=== PATIENT | female | born 2000 ===

== ENCOUNTER 2019-12-14 17:49 | Emergency (ER) | payer BC, MEDICAID ==
[2019-12-14 18:14] VITALS: BP 122/75; PULSE 105
--- NOTE | 2019-12-14 18:41 | EDM.PDOC ---
ED HPI GENERAL MEDICAL PROBLEM - General Chief Complaint: Respiratory Problem Stated Complaint: pneumonia Time Seen by Provider: 12/14/19 18:20 Source of Information: Reports: Patient History Limitations: Reports: No Limitations - History of Present Illness INITIAL COMMENTS - FREE TEXT/NARRATIVE: PMH CF. Patient states she started a cold Jasmin, increased cough now with low grade fever. Negative COVID yesterday in [place]. Is prescribed azithromax MWF prophylactically, does not remember when she last took it. C/O increased fatigue and productive cough. - Related Data Allergies Allergy/AdvReac Type Severity Reaction Status Date / Time No Known Allergies Allergy Verified 11/25/15 19:23 Home Meds: Home Meds Albuterol [Proventil] 1 inh INH BID 11/25/15 [History] Azithromycin 1 tab PO MOWEFR 11/25/15 [History] Dornase Fco [Pulmozyme] 1 vial NEB DAILY 11/25/15 [History] Fluticasone Propionate [Flonase] 2 spray NASBOTH DAILY 11/25/15 [History] Lipase/Protease/Amylase [Halie Dr 24,000 Units Capsule] 4 cap PO TIDMEALS 11/25/15 [History] Mv. Min Cmb#52/FA/Vit K1/Ubi [Aquadeks Softgel] 1 tab PO DAILY 11/25/15 [History] Elexacaftor/Tezacaftor/Ivacaft [Trikafta 100/50/75 mg-150 mg] 3 tab PO TID 12/14/19 [History] Escitalopram Oxalate 10 mg PO DAILY 12/14/19 [History] Past Medical History HEENT History: Reports: Allergic Rhinitis Respiratory History: Reports: Asthma, Cystic Fibrosis, Other (See Below) Other Respiratory History: 2 embolizations, right upper lobe lobectomy Gastrointestinal History: Reports: Other (See Below) Other Gastrointestinal History: cystic fibrosis, constipation, diarrhea, digestive problems without enzymes Psychiatric History: Reports: Depression Endocrine/Metabolic History: Reports: Other (See Below) Other Endocrine/Metabolic History: CF related diabetes - Past Surgical History Female Surgical History: Reports: None Neurological Surgical History: Reports: None ED ROS GENERAL - Review of Systems Review Of Systems: See Below Constitutional: Reports: Fever, Fatigue HEENT: Reports: No Symptoms Respiratory: Reports: Shortness of Breath, Cough, Sputum Cardiovascular: Reports: No Symptoms, Dyspnea on Exertion Endocrine: Reports: Fatigue GI/Abdominal: Reports: No Symptoms : Reports: No Symptoms Musculoskeletal: Reports: No Symptoms Skin: Reports: No Symptoms Neurological: Reports: No Symptoms Psychiatric: Reports: No Symptoms Hematologic/Lymphatic: Reports: No Symptoms Immunologic: Reports: No Symptoms ED EXAM, GENERAL - Physical Exam Exam: See Below Exam Limited By: No Limitations General Appearance: Alert, No Apparent Distress Throat/Mouth: Normal Voice, No Airway Compromise Head: Atraumatic Neck: Normal Inspection, Full Range of Motion Respiratory/Chest: No Respiratory Distress, Lungs Clear. No: Rales, Wheezing Cardiovascular: Normal Peripheral Pulses, No Murmur, Tachycardia Peripheral Pulses: 3+: Radial (L), Radial (R) GI/Abdominal: Normal Bowel Sounds, Soft (Female) Exam: Deferred Rectal (Female) Exam: Deferred Back Exam: Full Range of Motion Extremities: Normal Capillary Refill Neurological: Alert, Oriented, Normal Gait Psychiatric: Normal Affect, Normal Mood Skin Exam: Warm, Dry, Intact Lymphatic: No Adenopathy Course - Vital Signs Last Recorded V/S: Last Vital Signs Temp 99.6 F 12/14/19 18:09 Pulse 105 H 12/14/19 18:09 Resp 20 12/14/19 18:09 BP 122/75 12/14/19 18:09 Pulse Ox 98 12/14/19 18:09 - Orders/Labs/Meds Orders: Active Orders 24 hr Category Date Time Status Chest 2V [CR] Stat Exams 12/14/19 Taken CULTURE SPUTUM + SMEAR [RM] Stat Lab 12/14/19 19:23 Ordered Departure - Departure Time of Disposition: 19:25 Disposition: Home, Self-Care 01 Condition: Good Clinical Impression: Pneumonia Qualifiers: Pneumonia type: due to unspecified organism Laterality: unspecified laterality Lung location: unspecified part of lung Qualified Code(s): J18.9 - Pneumonia, unspecified organism - Discharge Information *PRESCRIPTION DRUG MONITORING PROGRAM REVIEWED*: Not Applicable *COPY OF PRESCRIPTION DRUG MONITORING REPORT IN PATIENT JENNA: Not Applicable Instructions: Shortness of Breath, Adult, [id number] Forms: ED Department Discharge Additional Instructions: Follow with pulmonology Monday as planned. Start your tobrymycin nebulizers at home continue them twice a day for 14days. Take zpak as prescribed, then start your normal dose on your MWF. Return to ED for any increased or new concerning symptoms. Sepsis Event Note (ED) - Evaluation Sepsis Screening Result: No Definite Risk - Focused Exam Vital Signs: Vital Signs Temp Pulse Resp BP Pulse Ox 12/14/19 18:09 99.6 F 105 H 20 122/75 98 ED Communication - ED Communication Date/Time Date: 12/14/19 Time Called: 18:45 (Called Abdirahman [phone] [employer] car [employer] for Dr. Giraldo pulmonology, Dr. Najera tank car re[employer]er) - Conversation Summary Summary Comment: patient has a virtual visit on Monday with pulmonology, they will reassess then - My Orders Last 24 Hours: My Active Orders 12/14/19 Chest 2V [CR] Stat 12/14/19 19:23 CULTURE SPUTUM + SMEAR [RM] Stat - Assessment/Plan Last 24 Hours: My Active Orders 12/14/19 Chest 2V [CR] Stat 12/14/19 19:23 CULTURE SPUTUM + SMEAR [RM] Stat Plan: Spoke wit Dr. Najera, she advises to start tobinebs BID x 14 days and a zpack, then restarting her azithromycin MWF as prescribed. She has a virtual visit on Monday and will be reassessed. We do not have tobinebs, but patient states she has them at home and has enough for a 14 day BID course, she will call when she returns home to verify dose and quantity.
[2019-12-14] MEDS ORDERED: Azithromycin 250 MG Tab ONE (19:00)
--- NOTE | 2019-12-16 22:12 | CR ---
DATE OF SERVICE: 12/14/2019 CLINICAL DATA: LOW GRADE FEVER. PA AND LATERAL CHEST: Comparison is made to a prior exam dated 11/25/2015. The heart size is normal. There is a left subclavian Port-A-Cath in place with distal tip in the region of the superior vena cava. There is metallic suture/coils in the mediastinum superiorly. There is atelectasis and ground glass opacity within the right upper lobe medially. Pneumonia should be considered. The lungs are otherwise clear. No pneumothorax. No pleural effusions. [id number] [facility]
== END 2019-12-14 19:34 | disposition home or self-care (01) ==
LOC: LB.ED 17:49
DX: J18.9 Pneumonia, unspecified organism (principal); J45.909 Unspecified asthma, uncomplicated; F32.9 Major depressive disorder, single episode, unspecified; Z79.899 Other long term (current) drug therapy
CPT/HCPCS: 71046; 99283; A9270